=== PATIENT | female | born 1970 | race Caucasian/White ===

== ENCOUNTER 2025-02-12 07:56 | Outpatient (CLI) | payer OTHER, SELFPAY ==
--- NOTE | 2025-02-12 08:15 | CRLHL7_ITS ---
For Patients: As a result of the Century Cures Act, medical imaging exams and procedure reports are released immediately into your electronic medical record. You may view this report before your referring provider. If you have questions, please contact your health care provider. ULTRASOUND-GUIDED LEFT BREAST BIOPSY AND POST-BIOPSY DIGITAL MAMMOGRAM FOR BIOPSY MARKER PLACEMENT CLINICAL HISTORY: Indeterminate nodule. COMPARISON STUDIES: 02/05/2025, 02/06/2025. TECHNIQUE: Real-time ultrasound with image documentation was used for targeting the breast lesion. Core biopsy specimens were obtained using an automated gun with an 18-gauge biopsy needle. Post-biopsy CC and ML digital mammograms were obtained to document position of the biopsy marker. CONSENT and TIME OUT: The procedure, risks, and alternatives were explained to the patient and a consent was signed. [place] Protocol was followed including pre-procedure verification that relevant information/documentation was available, reviewed and properly matched to the patient; consent accurate and complete; and equipment and supplies available. Time Out was conducted just prior to starting procedure to verify the four required elements: patient identity, correct side/site marked (if applicable), procedure, relevant images/results properly labeled and displayed (if applicable). PROCEDURE: The patient was positioned supine on the ultrasound table. The breast was prepped with ChloraPrep. 8 cc of 1 percent lidocaine used for local anesthesia. Core samples were obtained. A sterile metal biopsy clip was placed percutaneously to mini the lesion position within the breast. The specimens were placed in 10% formalin and sent to the pathology department. Pressure was held on the biopsy site until all bleeding subsided. The skin incision was closed with Steri-Strips. An ice pack was positioned over the biopsy site. Post-biopsy instructions were reviewed with the patient, and a written copy was given to her. LATERALITY: LEFT breast. LESION: Hypoechoic solid nodule measuring 13 x 8 x 9 mm at 8 o`clock, 5 cm from the nipple. SUSPICION FOR MALIGNANCY: High. NUMBER OF SAMPLES: 5. BIOPSY CLIP SHAPE: Oval. PROXIMITY OF CLIP TO TARGET: Within the lesion. IMPRESSION: Ultrasound-guided breast biopsy. When the pathology report is available, an addendum to this report will be made. ACR not applicable Dictated by Juan Sky MD @ 02/12/2025 9:33:45 AM /sp SP/Dictated by: Juan Sky MD @ 02/12/2025 9:33:00 AM (Electronically Signed)
--- NOTE | 2025-02-12 09:00 | CRLHL7_ITS ---
For Patients: As a result of the Century Cures Act, medical imaging exams and procedure reports are released immediately into your electronic medical record. You may view this report before your referring provider. If you have questions, please contact your health care provider. PLEASE SEE LEFT BREAST ULTRASOUND-GUIDED BIOPSY OF SAME DAY. CRL:sp SP/Dictated by: Juan Sky MD @ 02/12/2025 9:31:00 AM (Electronically Signed)
== END 2025-02-12 07:57 | disposition home or self-care (01) ==
LOC: US 07:57
PROVIDERS: Visit Provider Family Medicine
DX: N63.20 Unspecified lump in the left breast, unspecified quadrant (principal); C50.912 Malignant neoplasm of unspecified site of left female breast; R92.8 Other abnormal and inconclusive findings on diagnostic imaging of breast
CPT/HCPCS: 19083; 77065; 88305; 88360; 88361; A4648; A4649

== ENCOUNTER 2025-02-24 10:03 | Outpatient (CLI) | payer OTHER, SELFPAY ==
--- NOTE | 2025-02-24 10:15 | CRLHL7_ITS ---
For Patients: As a result of the 21st Century Cures Act, medical imaging exams and procedure reports are released immediately into your electronic medical record. You may view this report before your referring provider. If you have questions, please contact your health care provider. BILATERAL BREAST MRI WITHOUT AND WITH GADOLINIUM CLINICAL HISTORY: 54 year old female with recently diagnosed left breast cancer. INDICATION FOR BREAST MRI: Staging of newly diagnosed breast cancer and screening of contralateral breast. Regional lymph nodes will also be assessed. COMPARISON STUDIES: Mammogram 02/05/2025, 02/05/2024, 01/05/2023 CONTRAST: 20 mL Dotarem IV. TECHNIQUE: The patient was positioned prone using a breast coil. Multiple imaging sequences were obtained using 1-1.5 mm thick slices with no gap. The image sequences include T2-weighted STIR in the axial plane, T1-weighted nonfat-saturated gradient echo in the axial plane, pre- and post-contrast T1-weighted FLASH 3D with fat suppression in the axial plane, and T1-weighted FLASH high resolution 3D with fat suppression in the sagittal plane. Image post-processing was performed on a [employer] workstation. Complex 3D rendering including maximum intensity projections (MIPS) and volumetric renderings were obtained to optimize visualization of the extent of pathology and relationship to the nipple, skin, and chest wall. This aids in determining feasibility of breast conservation surgery. Subtraction, multiplanar reconstruction, mean curve determination, and angiogenesis mapping were also performed. The study was technically adequate. FINDINGS: Amount of Fibroglandular Tissue: Heterogeneous fibroglandular tissue. Breast Background Enhancement: Mild. RIGHT Breast: No suspicious finding. LEFT Breast: There is an irregular mass with irregular margins and heterogeneous internal enhancement at approximately 8 o`clock, middle to posterior depth measuring 3.1 x 1.0 x 2.1 cm. This demonstrates fast initial enhancement washout. Artifact from a biopsy marker clip is seen within the inferior aspect of the mass. No additional suspicious areas of enhancement. Lymph Nodes: No adenopathy. IMPRESSIONS AND RECOMMENDATIONS: Left breast: 1. Mass at 8 o`clock, middle to posterior depth measuring up to 3.1 cm on MRI is consistent with the site of biopsy-proven malignancy. Surgical/oncologic follow-up for continued management. 2. No adenopathy. Right breast: Negative, there is no MRI evidence of contralateral malignancy. BI-RADS: 6: Known biopsy-proven malignancy. Dictated by Rozina Barber MD @ 02/25/2025 1:35:33 PM (Electronically Signed)
== END 2025-02-24 10:04 | disposition home or self-care (01) ==
LOC: MRI 10:04
PROVIDERS: Visit Provider Surgery
DX: C50.912 Malignant neoplasm of unspecified site of left female breast (principal); K76.9 Liver disease, unspecified
CPT/HCPCS: 77049; C8908; C8937; A9575

== ENCOUNTER 2025-03-31 06:32 | Inpatient (IN) | payer OTHER, SELFPAY ==
[2025-03-31] VITALS (29 sets, daily range): BP systolic 111–167; BP diastolic 65–86; PULSE 58–96; RESP 11–20; TEMP 36.1–37.1; O2SAT 93–99; BMI 27.6
[2025-03-31] MEDS: SODIUM CHLORIDE 0.9 % (FLUSH) 10 ML SYRINGE IVF (07:24)
[2025-03-31] MEDS: LACTATED RINGERS 1000 ML 1,000 ML 100 ML IV ×2 (07:25→08:59)
--- NOTE | 2025-03-31 07:30 | CRLHL7_ITS ---
For Patients: As a result of the Century Cures Act, medical imaging exams and procedure reports are released immediately into your electronic medical record. You may view this report before your referring provider. If you have questions, please contact your health care provider. INDICATION: Left-sided breast carcinoma presenting for sentinel node evaluation prior to surgery. TECHNIQUE: [place] lymph node study performed after the intradermal injection of 1.1 microcuries of technetium-99m filtered sulfur colloid in the upper outer left breast. FINDINGS: The procedure and its risks were explained in detail to the patient including but not limited to the risk of bleeding, infection, and a nondiagnostic procedure. The patient understood the procedure and its risks and elected to proceed. [place] protocol was followed and the Time Out procedure was performed. Then, using sterile technique and local anesthesia, an intradermal injection of 1.1 millicuries of Tc99m filtered sulfur colloid was made in the upper outer left breast in the periareolar region. No complications. Dictated by Juan Sky MD @ 03/31/2025 8:53:51 AM (Electronically Signed)
--- NOTE | 2025-03-31 07:45 | W.PM.H&PU ---
History & Physical Update History & Physical Update H&P Reviewed and patient assessed: No changes noted
--- NOTE | 2025-03-31 08:00 | SUR.PREOP ---
Nuclear medicine staff used Lidocaine at beside.
--- NOTE | 2025-03-31 08:50 | P.NB_ITS ---
Nerve Block Nerve Block Time Seen by Provider: 08:20 Date Seen: 03/31/25 Type of block requested by surgeon for post-operative analgesia: intercostal and intercostal add on Side: bilateral Time out performed: Yes Verification of patient name: Yes Verification of date of : Yes Site marking: site marked Name of person performing procedure: Uriel Continuous monitoring Was continuous monitoring of O2 sat, B/P, terrazzo journeyman, recorded every 15 minutes?: Yes Procedure Checklist: sterile prep, needles and gloves Ultrasound guided. Images saved: Yes Medications given in 5ml increments after negative aspiration: Marcaine %: 0.25 mL: 30 Needle gauge: 20 and Exparel mL: 10 Block Charges Block Charge (with Pro Fee): Intercostal Nerve Block Use of Ultrasound Machine for Block: Yes- US Guidance/pain block
--- NOTE | 2025-03-31 08:51 | P.ANES_ITS ---
Anesthesia Charges Start Date/Time Anesthesia Start Date: 03/31/25 Anesthesia Start Time: 08:10 Stop Date/Time Anesthesia Stop Date: 03/31/25 Anesthesia Stop Time: 11:33 Coding CPT Codes CPT Codes: ANESTH SURGERY OF SHOULDER - 68352 ([id number]) P2 - PATIENT W/MILD SYST DISEASE, QK - MOTEL MAID 2-4 CNCRNT ANES PROC, QX - MANAGER ENTERPRISE SVC W/ MD MED DIRECTION
--- NOTE | 2025-03-31 08:51 | W.ANESCHARGE ---
Anesthesia Charges Start Date/Time Anesthesia Start Date: 03/31/25 Anesthesia Start Time: 08:10 Stop Date/Time Anesthesia Stop Date: 03/31/25 Anesthesia Stop Time: 11:33 Coding CPT Codes CPT Codes: ANESTH SURGERY OF SHOULDER - 21877 ([id number]) P2 - PATIENT W/MILD SYST DISEASE, QK - ANIMAL SHELTER MANAGER 2-4 CNCRNT ANES PROC, QX - DENTAL PRACTITIONER SVC W/ MD MED DIRECTION
--- NOTE | 2025-03-31 09:50 | CRLHL7_ITS ---
For Patients: As a result of the Cures Act, medical imaging exams and procedure reports are released immediately into your electronic medical record. You may view this report before your referring provider. If you have questions, please contact your health care provider. LEFT DIAGNOSTIC MAMMOGRAM SPECIMEN WITH COMPUTER-AIDED DETECTION CLINICAL HISTORY: LEFT breast cancer. COMPARISON: 02/12/2025. FINDINGS: Two views of the LEFT mastectomy specimen submitted. The biopsied mass and biopsy clip are present in the specimen. IMPRESSION: Biopsied mass and biopsy clip are present the specimen. ACR not applicable. Dictated by Juan Sky MD @ 03/31/2025 11:07:58 AM /sp SP/Dictated by: Juan Sky MD @ 03/31/2025 11:07:00 AM (Electronically Signed)
--- NOTE | 2025-03-31 10:05 | CRLHL7_ITS ---
For Patients: As a result of the Cures Act, medical imaging exams and procedure reports are released immediately into your electronic medical record. You may view this report before your referring provider. If you have questions, please contact your health care provider. LEFT AXILLARY NODE SPECIMEN MAMMOGRAM WITH COMPUTER-AIDED DETECTION CLINICAL HISTORY: LEFT breast cancer. COMPARISON: Breast MRI 02/24/2025. FINDINGS: Two specimens from LEFT axillary node dissection submitted, two views each. IMPRESSION: Each specimen contains a primarily fatty lymph node. ACR not applicable. Dictated by Juan Sky MD @ 03/31/2025 11:10:14 AM /sp SP/Dictated by: Juan Sky MD @ 03/31/2025 11:10:00 AM (Electronically Signed)
--- NOTE | 2025-03-31 11:28 | P.GSOP_ITS ---
Operative Note Date of procedure: 03/31/25 Pre-op diagnosis: Invasive lobular carcinoma, left breast Post-op diagnosis: Same Type of Procedure: 1. Injection of radionucleotide tracer 2. Left axillary sentinel lymph node biopsy 3. Bilateral mastectomy Indications: Patient is a 54-year-old female with new diagnosis of invasive lobular carcinoma of the left breast. Please see consultation note regarding full discussion of treatment options and recommendations. Risks and benefits of operative intervention were discussed at length with the patient. Risks included but was not limited to: Bleeding, infection, risk of damage to surrounding structures, possible need for additional procedures, flap ischemia, hematoma and risks associated with sentinel node biopsy such as lymphedema, nerve or vascular injury. All questions and concerns were addressed with the patient agreeing to proceed. Procedure Description: Prior to proceeding to the operating room patient was consented for injection of the radionucleotide tracer. The area was prepped with alcohol and local anesthetic 1% lidocaine was used to inject subdermal. An injection of radionucleotide tracer was then placed periareolar at the 8 o'clock position, near the tumor and in the left breast procedure was tolerated well. The operative site was marked and the patient was brought to the operating room and placed on the operating table in supine position.? Care was taken to pad the patient's pressure points.?? The patient was then intubated by anesthesia.?? Pec blocks were performed bilaterally The operative site was then prepped and draped in the usual sterile fashion.? A time-out was then performed. I injected 3 cc of lymphazurin blue in the patient's left breast. I then performed breast massage for a period of 5 minutes. I performed an elliptical incision on the left breast around the nipple-areolar complex and started by dissecting the subcutaneous tissues using electrocautery. The breast flaps were created circumferentially, dissecting all the breast tissue off of the overlying skin superiorly up to the clavicle, medially to the lateral border of the sternum, laterally out to the latissimus and inferiorly to the inferior aspect of the breast fold. Once flaps had been raised in all 4 directions down to the level of the fascia, the breast was taken off of the chest wall. I included the fascia in my dissection. The underlying pectoralis muscle was inspected and hemostasis was appreciated. The breast was removed through the incision and marked with a short stitch superior and a long stitch lateral. It was sent to pathology for immediate assessment. Tumor was identified close to the posterior margin, but not invading the included fascia, consistent with negative margins. I then proceeded to take out the sentinel lymph nodes through the mastectomy incision. Using the Neoprobe I identified the sentinel lymph node. The lymphovascular pedicle was tied off with 3-0 Vicryl. The tissue was then sent to pathology for frozen evaluation, with no evidence of malignancy. An additional sample of lymph node tissue was also removed from the left axilla and sent as a separate specimen. This came back negative for metastatic disease. No additional blue or hot nodes were identified. Background counts in the axilla were low. I then changed my gloves, gown and had a new surgical set up in order to proceed with the contralateral prophylactic mastectomy. I made an elliptical incision around the nipple-areolar complex and started by dissecting the subcutaneous tissues using electrocautery. The breast flaps were created circumferentially, dissecting all the breast tissue off of the overlying skin superiorly up to the clavicle, medially to the lateral border of the sternum, laterally out to the latissimus and inferiorly to the inferior aspect of the breast fold. Once flaps had been raised in all 4 directions down to the level of the fascia, the breast was taken off of the chest wall. I included the fascia in my dissection. The breast was removed through the incision and marked with a short stitch superior and a long stitch lateral. It was sent to pathology for immediate assessment, where no obvious abnormalities were identified. Bilateral 15 Arabic VALORIE drains were placed on both the right and left side of the chest wall. This were secured in place with 2-0 nylon suture. On the left side the clavipectoral fascia within the axilla was closed with 3-0 Vicryl. The bilateral elliptical incisions were closed in layers with interrupted 3-0 Vicryl and running 4-0 Monocryl. Steri-Strips, 4 x 4 and an Danish wrap was placed around the chest for dressings. ? The patient was then woken and transported to the recovery area in stable condition. ? The patient tolerated the procedure well. Findings: Left breast invasive lobular carcinoma, margins negative. [place] lymph node identified and negative for metastatic disease. Anesthesia: GETA Surgeon: Meseret Pandya MD Estimated blood loss (mL): 150 Additional Specimen Information: A. Left breast B. Left axillary sentinel lymph node C. Left axillary node D. Right breast Condition: stable Disposition: PACU
--- NOTE | 2025-03-31 11:52 | P.ANES_ITS ---
Anesthesia Charges Start Date/Time Anesthesia Start Date: 03/31/25 Anesthesia Start Time: 08:10 Stop Date/Time Anesthesia Stop Date: 03/31/25 Anesthesia Stop Time: 11:33 Coding CPT Codes CPT Codes: ANESTH SURGERY OF SHOULDER - 52659 ([id number]) P2 - PATIENT W/MILD SYST DISEASE, QK - HUB BANDER 2-4 CNCRNT ANES PROC, QX - SHEET HANGER SVC W/ MD MED DIRECTION
--- NOTE | 2025-03-31 11:52 | W.ANESCHARGE ---
Anesthesia Charges Start Date/Time Anesthesia Start Date: 03/31/25 Anesthesia Start Time: 08:10 Stop Date/Time Anesthesia Stop Date: 03/31/25 Anesthesia Stop Time: 11:33 Coding CPT Codes CPT Codes: ANESTH SURGERY OF SHOULDER - 48804 ([id number]) P2 - PATIENT W/MILD SYST DISEASE, QK - DEPARTMENT STORE MANAGER 2-4 CNCRNT ANES PROC, QX - INVESTOR RELATIONS ASSOCIATE SVC W/ MD MED DIRECTION
[2025-03-31] MEDS: HYDROCODONE-ACETAMIN 5-325 MG 1 TAB PO (18:34)
--- NOTE | 2025-03-31 19:07 | PC.NURSE ---
End of Shift (260)? ? Patient has been very pleasant and cooperative throughout shift. She was admitted after a double mastectomy. Patient has not complained of pain (as of 17:42). Diet advanced to regular. Tolerated well. SCDs in place while in bed, off while in recliner. Patient is SBA to the toilette. JPs in place bilaterally. Patient has been afebrile and vitally stable throughout shift.?Aromatherapy patches have been used for nausea.?
[2025-04-01] MEDS: HYDROCODONE-ACETAMIN 5-325 MG 1 TAB PO ×2 (03:09→10:06)
[2025-04-01 03:10] VITALS: BP 140/88; PULSE 65; RESP 17; TEMP 37.3; O2SAT 98
[2025-04-01 05:20] VITALS: BP 111/68; PULSE 56; O2SAT 99
--- NOTE | 2025-04-01 06:15 | PC.NURSE ---
Shift note ([id number]): Patient pleasant, alert and oriented. Independent in room during night. Has described surgical pain as a tingling pain and pressure.?Rates pain 1-3/10. Given PRN [place] x1. Dressings and scooter wrap C, D & I. VALORIE drains patent and draining bright red blood.?Total VALORIE drain output this shift: Right 45cc and Left 15cc. Adequate fluid intake and urine output. Urine blue-green. Pt noticed mild swelling to right hand; encouraged her to elevate on a pillow.?
[2025-04-01 07:00] VITALS: BP 120/80; PULSE 62; RESP 16; TEMP 37.2; O2SAT 98
--- NOTE | 2025-04-01 08:52 | P.GSOP_ITS ---
Operative Note Date of procedure: 03/31/25 Surgeon: Meseret Pandya MD [place] Node Biopsy for Breast Cancer Operation Performed with Curative Intent: Yes Tracers used to Identify sentinel nodes in the upfront surgery (non-neoadjuvant) setting: Dye and Radioactive Tracer Tracers used to identify sentinel nodes in the neoadjuvant setting: N/A All nodes (colored or non-colored) present at the end of a dye filled lymphatic channel were removed: Yes All significantly radioactive nodes were removed: Yes All palpably suspicious nodes were removed: Yes Biopsy proven positive nodes marked with clips prior to chemotherapy were identified and removed: Not Applicable
--- NOTE | 2025-04-01 08:53 | PM.DS1 ---
DS: Providers Provider Date Seen: 04/01/25 Date of admission: 03/31/25 06:32 Primary care physician: Samia Smith DO Admitting Clinician: Meseret Pandya MD Attending Physician on discharge: Meseret Pandya MD DS: Summary Hospital Course Hospital Course: Patient was admitted after undergoing a bilateral mastectomy with left sentinel lymph node biopsy for invasive lobular carcinoma of the left breast. Bilateral drains were left in place. Post operatively patient did well. Pain was controlled with oral medication. She was tolerating a regular diet and ambulating without difficulty. Patient was discharged home wit plans for follow up in clinic in 1 week. Time Spent with Patient Time attestation: Total time spent providing and/or coordinating discharge services: Exam Narrative: Exam Narrative: Breast: DANISH wrap in place. flaps viable with no ecchymosis or concern for ischemia. Steri strips over incisions. Bilateral drains with scant amount of sabguinous drainage. Const: Vital Signs, click to edit/add: Vital Signs - 24 hr 03/31/25 11:30 03/31/25 11:35 03/31/25 11:40 Temperature 97.4 F L Pulse Rate 58 L 60 71 Pulse Rate [Left P ulse Oximeter] Respiratory Rate 13 12 11 L Blood Pressure 111/68 111/65 117/75 Blood Pressure [Ri ght Arm] Pulse Oximetry 95 95 96 Oxygen Delivery Me thod Room Air 03/31/25 11:45 03/31/25 11:50 03/31/25 11:55 Temperature Pulse Rate 74 71 70 Pulse Rate [Left P ulse Oximeter] Respiratory Rate 18 16 13 Blood Pressure 129/82 130/77 142/76 H Blood Pressure [Ri ght Arm] Pulse Oximetry 96 97 96 Oxygen Delivery Me thod 03/31/25 12:00 03/31/25 12:05 03/31/25 12:10 Temperature Pulse Rate 68 70 74 Pulse Rate [Left P ulse Oximeter] Respiratory Rate 13 12 15 Blood Pressure 141/86 H 138/85 130/83 Blood Pressure [Ri ght Arm] Pulse Oximetry 96 96 97 Oxygen Delivery Me thod 03/31/25 12:15 03/31/25 12:20 03/31/25 12:25 Temperature 97.7 F Pulse Rate 73 70 63 Pulse Rate [Left P ulse Oximeter] Respiratory Rate 14 13 14 Blood Pressure 131/74 132/74 129/74 Blood Pressure [Ri ght Arm] Pulse Oximetry 93 95 95 Oxygen Delivery Me thod 03/31/25 12:30 03/31/25 12:35 03/31/25 12:40 Temperature 97.8 F Pulse Rate 64 69 70 Pulse Rate [Left P ulse Oximeter] Respiratory Rate 13 14 13 Blood Pressure 131/73 124/73 128/72 Blood Pressure [Ri ght Arm] Pulse Oximetry 93 96 95 Oxygen Delivery Me thod 03/31/25 12:45 03/31/25 13:05 03/31/25 13:20 Temperature 97.5 F L 97.5 F L Pulse Rate Pulse Rate [Left P ulse Oximeter] 64 68 67 Respiratory Rate 12 14 14 Blood Pressure Blood Pressure [Ri ght Arm] 132/79 121/75 119/73 Pulse Oximetry 97 97 95 Oxygen Delivery Me thod Room Air Room Air Room Air 03/31/25 13:35 03/31/25 13:50 03/31/25 14:20 Temperature 97 F L Pulse Rate Pulse Rate [Left P ulse Oximeter] 67 70 71 Respiratory Rate 14 16 Blood Pressure Blood Pressure [Ri ght Arm] 121/69 118/70 128/75 Pulse Oximetry 97 96 96 Oxygen Delivery Me thod Room Air Room Air Room Air 03/31/25 14:50 03/31/25 15:00 03/31/25 15:50 Temperature 98.5 F Pulse Rate Pulse Rate [Left P ulse Oximeter] 96 65 Respiratory Rate 18 16 Blood Pressure Blood Pressure [Ri ght Arm] 139/78 141/79 H Pulse Oximetry 96 96 98 Oxygen Delivery Me thod Room Air Room Air Room Air 03/31/25 16:50 03/31/25 17:50 03/31/25 18:50 Temperature 98.5 F Pulse Rate Pulse Rate [Left P ulse Oximeter] 64 78 Respiratory Rate 16 18 18 Blood Pressure Blood Pressure [Ri ght Arm] 129/73 139/77 121/71 Pulse Oximetry 98 99 99 Oxygen Delivery Me thod Room Air Room Air Room Air 03/31/25 21:47 03/31/25 21:47 04/01/25 03:10 Temperature 98.7 F 99.2 F Pulse Rate Pulse Rate [Left P ulse Oximeter] 64 65 Respiratory Rate 17 17 17 Blood Pressure Blood Pressure [Ri ght Arm] 136/70 140/88 H Pulse Oximetry 99 99 98 Oxygen Delivery Me thod Room Air Room Air Room Air 04/01/25 05:20 04/01/25 07:00 04/01/25 07:00 Temperature 98.9 F Pulse Rate Pulse Rate [Left P ulse Oximeter] 56 L 62 Respiratory Rate 16 Blood Pressure Blood Pressure [Ri ght Arm] 111/68 120/80 Pulse Oximetry 99 98 98 Oxygen Delivery Me thod Room Air Room Air Room Air 04/01/25 07:00 Temperature Pulse Rate Pulse Rate [Left P ulse Oximeter] 62 Respiratory Rate Blood Pressure Blood Pressure [Ri ght Arm] Pulse Oximetry Oxygen Delivery Me thod Discharge Plan Discharge Disposition: Home, Self-Care Date of Admission: 03/31/25 06:32 Attending Provider on Discharge: Meseret Pandya Primary Care Provider: Samia Smith Condition: Improved Anticipated Discharge Date/Time: 04/01/25 07:54 Discharge Medications: New hydrocodone-acetaminophen 5-325 mg tablet 1 tab PO Q6H PRN (Reason: pain) Qty: 15 0RF senna 8.6 mg capsule 8.6 mg PO DAILY PRN (Reason: constipation) Qty: 90 0RF Continued hydrochlorothiazide 25 mg tablet 25 mg PO DAILY Patient Comments: TAKE ONE TABLET BY MOUTH EVERY DAY lisinopril 30 mg tablet 30 mg PO DAILY Patient Comments: TAKE 1 TABLET BY MOUTH ONCE DAILY atorvastatin 40 mg tablet 40 mg PO DAILY Patient Comments: TAKE ONE TABLET BY MOUTH AT BEDTIME fluticasone propionate 50 mcg/actuation spray,suspension 1 spray intranasal DAILY Patient Comments: INHALE ONE SPRAY INTO THE AFFECTED NOSTRIL(S) ONCE DAILY albuterol sulfate 90 mcg/actuation HFA aerosol inhaler 2 inh inhalation Q6H PRN calcium carbonate [Oyster Shell Calcium] 500 mg calcium (1,250 mg) tablet 500 mg PO BID fluorouracil [Efudex] 5 % cream 1 applic topical BID imiquimod 5 % cream in packet 1 applic topical 3XW Discharge Orders: Discharge Order (Routine); Ordered 04/01/25 Ordered By: Meseret Pandya Patient Education: Hydrocodone/Acetaminophen (By mouth), Senna (By mouth), Andrés-Pryor Drain Care (DC), Deep Sedation (DC), NH+C Post-Operative Instructions: Breast Surgery, NH+C Post-Operative Instructions: Mastectomy Additional Instructions: Okay to shower. Do not soak in a bath or swim for the next 2 weeks. Continue with the Danish wrap for compression while your drains remain in place. This helps to reduce swelling and fluid buildup. Drains will remain in place until you have less than 30 mL of fluid per 24 hours. Make sure that you are emptying your drains often and keeping close record of the output. Activity Level: No strenuous activity Activity Detail: Do not lift anything greater than 20 lb. Limited range of motion while the drains are in place. Discharge Diet: Regular Follow Up Appointments: Meseret Pandya MD [Staff Physician, General Surgery] - 04/08/25 10:00 am Referral Note: [facility] for hospital follow-up. Samia Smith DO [Primary Care Provider, Family Practice] Forms: Patient Belongings, MyHealth Info Instructions
--- NOTE | 2025-04-01 10:29 | PC.NURSE ---
Patient was very pleasant and cooperative throughout shift. Vital stable, afebrile, pain controlled to 1/10. Danish wrap changed after shower. Education on JPs reinforced to spouse and patient, return demo from the spouse, danish wrap change education and return demo given. Discharge at 10:26 to spouse.
== END 2025-04-01 10:26 | disposition home or self-care (01) | DRG 581 ==
PROVIDERS: Admitting Provider Surgery; PCP Family Medicine; Visit Provider Surgery
PROC: 0HTV0ZZ Resection of Bilateral Breast, Open Approach (ICD-10-PCS; principal; 2025-03-31 08:45)
PROC: 0HTV0ZZ Resection of Bilateral Breast, Open Approach (ICD-10-PCS; 2025-03-31 08:45)
DX: C50.312 Malignant neoplasm of lower-inner quadrant of left female breast (principal); Z17.0 Estrogen receptor positive status [ER+]; Z17.22 Progesterone receptor negative status; Z17.32 Human epidermal growth factor receptor 2 negative status; G89.18 Other acute postprocedural pain; I10 Essential (primary) hypertension; J45.20 Mild intermittent asthma, uncomplicated; F41.1 Generalized anxiety disorder; Z80.0 Family history of malignant neoplasm of digestive organs; N95.1 Menopausal and female climacteric states; E78.5 Hyperlipidemia, unspecified; N39.3 Stress incontinence (female) (male)
CPT/HCPCS: 01610; 38792; 64420; 64421; 76942; 88305; 88307; 88342; A4314; A9270; A9541; J0665; J0666; J0690; J1100; J1885; J2250; J2405; J2704; J3010; J3475; J3490; J7120

== ENCOUNTER 2025-04-23 08:09 | Outpatient (CLI) | payer OTHER, SELFPAY ==
--- NOTE | 2025-04-23 08:30 | CRLHL7_ITS ---
For Patients: As a result of the Century Cures Act, medical imaging exams and procedure reports are released immediately into your electronic medical record. You may view this report before your referring provider. If you have questions, please contact your health care provider. INDICATION: Breast cancer. TECHNIQUE: CT scan of the chest, abdomen, and pelvis with 84 cc of Isovue-370 given intravenously. FINDINGS: Chest: No mediastinal or hilar adenopathy. A few scattered bilateral segmental and subsegmental pulmonary emboli. No evidence of right heart strain. The lungs show no focal pulmonary opacities. No pneumothorax. Bilateral mastectomies. Abdomen and pelvis: 4.5 cm mass in segment 2 of the liver shows discontinuous peripheral puddling with centripetal fill-in. A few small cysts in the liver. No other focal abnormalities identified in the visualized portions of the liver, spleen, pancreas, adrenal glands, and kidneys. No hydronephrosis. The GI tract is incompletely distended but shows no gross abnormalities. Gallstones in an otherwise normal-appearing gallbladder. No retroperitoneal, pelvic sidewall, or mesenteric adenopathy. IMPRESSION: 1. Bilateral mastectomies. 2. A few scattered bilateral pulmonary emboli. 3. 4.5 cm probable hemangioma in segment 2 of the liver. 4. No adenopathy. Note: Findings discussed with and acknowledged by Dr. Mcdaniel on 27 April 2025 at 0815 hours. Please note that all CT scans at this facility use dose modulation, iterative reconstruction, and/or weight-based dosing when appropriate to reduce radiation dose to as low as reasonably achievable. Dictated by Heron Abdul MD @ 04/27/2025 8:24:34 AM (Electronically Signed)
--- NOTE | 2025-04-23 09:00 | CRLHL7_ITS ---
For Patients: As a result of the Century Cures Act, medical imaging exams and procedure reports are released immediately into your electronic medical record. You may view this report before your referring provider. If you have questions, please contact your health care provider. DXA BONE MINERAL DENSITY STUDY Current height (in): 67. Weight (lb): 172. Menopause age: 48. Ethnicity: White. 1. Have you had a previous hip or vertebral fracture? No. 2. Have you had any fractures during your adult life which did not result from significant trauma (e.g., auto accident)? No. 3. Did either of your parents have a hip fracture? No. 4. Do you smoke? No. 5. Have you ever taken Glucocorticoids? Yes. 6. Do you have rheumatoid arthritis? No. 7. Do you have secondary osteoporosis? No. 8. Do you drink 3 or more alcoholic drinks per day? No. 9. Are you being treated for osteoporosis? No. 10. Have you ever taken any of the following medications: Actonel, Evista, Fosamax, Miacalcin, Reclast, Boniva, Forteo, HRT (i.e. estrogen/hormone therapy), Protelos, Prolia, Vitamin D, Calcium, other ??? please specify. ANSWER: Yes, vitamin D and calcium. 11. Do you have any of the following medical conditions: Anorexia or bulimia, asthma or emphysema, end stage renal disease, hyperparathyroidism, any seizure disorders, cancer, inflammatory bowel diseases, hysterectomy, other ??? please specify. ANSWER: Yes, asthma or emphysema and cancer. 12. What was your maximum height (inches)? 68. 13. Do you perform weight bearing exercise regularly? Yes. 14. Do you regularly consume dairy products? Yes. 15. Do you drink caffeinated beverages? Yes. 16. At what age did your period start? 10. 17. Are you premenopausal? No. 18. How many full-term pregnancies have you had? 4. 19. Have you ever missed your period for more than 6 months in a row (not including or menopause)? No. TECHNIQUE: Bone mineral density study was performed using the [employer]. FINDINGS: The results of the study expressed as bone mineral density (BMD) are as follows: Lumbar spine L1 to L4: BMD: 0.961 g/cm2. T-score: -0.8. Z-score: 0.4 Neck Left: BMD: 0.801 g/cm2. T-score: -0.4. Z-score: 0.7 Right: BMD: 0.814 g/cm2. T-score: -0.3. Z-score: 0.8 Total Left: BMD: 0.979 g/cm2. T-score: 0.3. Z-score: 1.1 Right: BMD: 1.031 g/cm2. T-score: 0.7. Z-score: 1.5 IMPRESSION: Normal bone density. *Comparison exams done prior to 12/2019 were performed on different unit, [employer]. Juan Sky M.D. Diagnostic Radiologist [email or web address]/Dictated by: Juan Sky MD @ 04/24/2025 11:26:00 AM (Electronically Signed)
== END 2025-04-23 08:10 | disposition home or self-care (01) ==
LOC: CT 08:10
PROVIDERS: PCP Family Medicine; Visit Provider Internal Medicine Hematology & Oncology
DX: C50.919 Malignant neoplasm of unspecified site of unspecified female breast (principal); N95.9 Unspecified menopausal and perimenopausal disorder; I26.99 Other pulmonary embolism without acute cor pulmonale; D18.09 Hemangioma of other sites
CPT/HCPCS: 71260; 74177; 77080; Q9967

== ENCOUNTER 2025-04-27 16:25 | Outpatient (CLI) | payer OTHER, SELFPAY ==
--- NOTE | 2025-04-27 16:45 | CRLHL7_ITS ---
For Patients: As a result of the Century Cures Act, medical imaging exams and procedure reports are released immediately into your electronic medical record. You may view this report before your referring provider. If you have questions, please contact your health care provider. INDICATION: Recent PE on CT. Malignant neoplasm of unspecified site. COMPARISON: none TECHNIQUE: A compression venous ultrasound exam was performed of both lower extremities using boston scale imaging, color Doppler and spectral Doppler analysis. FINDINGS: Sonographic imaging of the lower extremities demonstrates normal compressibility and color Doppler venous blood flow within the common femoral, deep femoral, and proximal greater saphenous veins. Within the thighs the femoral veins are patent and compressible. At a lower level the popliteal and posterior tibial veins also show normal compressibility and color Doppler venous blood flow. IMPRESSION: Normal venous ultrasound exam. No evidence of deep vein thrombosis within either the left or right lower extremity. Dictated by Juan Sky MD @ 04/28/2025 7:49:10 AM (Electronically Signed)
== END 2025-04-27 16:26 | disposition home or self-care (01) ==
PROVIDERS: PCP Family Medicine; Visit Provider Internal Medicine Hematology & Oncology
DX: I26.99 Other pulmonary embolism without acute cor pulmonale (principal); C50.919 Malignant neoplasm of unspecified site of unspecified female breast
CPT/HCPCS: 93970

== ENCOUNTER 2025-06-09 11:00 | Outpatient (CLI) | payer OTHER, SELFPAY ==
--- NOTE | 2025-06-09 11:15 | CRLHL7_ITS ---
For Patients: As a result of the Century Cures Act, medical imaging exams and procedure reports are released immediately into your electronic medical record. You may view this report before your referring provider. If you have questions, please contact your health care provider. Indication: Localized lump Technique: Grayscale and color Doppler ultrasound of the left chest wall performed. Comparison: CT chest 04/23/2025 Findings: Complex collection of fluid with multiple internal reticular echoes noted within the left chest wall soft tissues measuring 3.9 x 1.1 x 6.1 cm. No internal vascularity. Impression: Subcutaneous hematoma measures 3.9 x 1.1 x 6.1 cm. Dictated by Juan Sky MD @ 06/09/2025 11:41:54 AM (Electronically Signed)
== END 2025-06-09 11:01 | disposition home or self-care (01) ==
LOC: US 11:01
PROVIDERS: PCP Family Medicine; Visit Provider Surgery
DX: R22.2 Localized swelling, mass and lump, trunk (principal); S20.219A Contusion of unspecified front wall of thorax, initial encounter
CPT/HCPCS: 76604

== ENCOUNTER 2025-07-20 14:38 | Outpatient (CLI) | payer OTHER, SELFPAY ==
--- NOTE | 2025-07-21 15:22 | W.ED.EKGINT ---
EKG Interpretation EKG Data Attestation: I personally reviewed and interpreted this ECG as follows: Date of EKG Tracin07/20/25 EKG interpretation date: 07/21/25 Prior EKG tracings: not available for review Interpretation: EKG is reviewed from above date, no old EKG to compare room 2, EKG shows normal sinus rhythm, with a ventricular rate of 67, no acute ST wave changes, VT interval is 146 milliseconds QRS is 84 milliseconds, normal QT at 398 QTC is 420. Assessment: Normal EKG normal sinus rhythm
== END 2025-07-20 14:39 | disposition home or self-care (01) ==
LOC: NFLDREF 14:41
PROVIDERS: PCP Family Medicine; Visit Provider Clinical Nurse Specialist
DX: Z51.81 Encounter for therapeutic drug level monitoring (principal); C50.919 Malignant neoplasm of unspecified site of unspecified female breast
CPT/HCPCS: 93010